=== PATIENT | female | born 1960 | race Caucasian/White ===

== ENCOUNTER → 2016-12-24 | Outpatient (CLI) | payer BC ==
[~2016-12-24] MED LIST: CARVEDILOL 1212.5 MG PO
[2016-12-24 09:22] LABS: BUN 7 mg/dL (7-18)
[2016-12-24 09:45] LABS: GFR (ESTIMATED) 103 ML/MIN (59-)
--- NOTE | 2016-12-30 08:50 | RADIOLOGY REPORT PS360 ---
DIG MAMM-SCREEN SIL W/CAD CAD Screening ORDERING PHYSICIAN : Maggie Travis APRN PATIENT AGE: 56 years GENDER: Female COMPARISON: : November 2015 & July 2014 digital mammogram INDICATION: Routine screening no hormones. No new complaints previous cyst aspiration left breas however TECHNIQUE: Standard CC and MLO images were obtained. R2 CAD reviewed. FINDINGS: Minimal fibroglandular elements scattered throughout both breast . No dominant mass nor suspicious calcifications.CAD computer review highlights no areas of concern RIGHT BREAST: No significant new areas of concern. Area of minimal nodularity medial as well as lateral appears similar to study from 2015. LEFT BREAST:. Unremarkable. Stable follow-up in one year IMPRESSION: Stable bilateral mammogram with no significant new findings. Bilateral follow-up in one year recommended. BI-RADS CATEGORY: 2_Benign RECOMMENDED FOLLOWUP: 12M 12 MONTH FOLLOW-UP (A letter has been sent to the patient regarding results of the study.)
== END ==
LOC: RAD 12-08 10:30
PROVIDERS: Nurse Practitioner Family
DX: Z12.31 Encounter for screening mammogram for malignant neoplasm of breast (principal); I10 Essential (primary) hypertension; E78.2 Mixed hyperlipidemia
CPT/HCPCS: G0202

== ENCOUNTER → 2016-12-28 | Outpatient (CLI) | payer BC | LOC: LAB 08:59 | DX: R73.9 Hyperglycemia, unspecified (principal) ==